=== PATIENT | female | born 1955 | race Caucasian/White ===

== ENCOUNTER 2018-05-19 08:21 | Emergency (ER) | payer MEDICAID, OTHER ==
[2018-05-19 08:28] VITALS: BMI 25.4
[2018-05-19] MEDS ORDERED: Sodium Chloride 0.9% 1,000 ML IV STA (08:45)
--- NOTE | 2018-05-19 08:45 | ED PDOC ---
HPI: Female Pain Time Seen by Provider: 05/19/18 08:32 Chief Complaint (Nursing): Female Genitourinary Chief Complaint (Provider): Hematuria, Abdominal pain History Per: Patient History/Exam Limitations: no limitations Onset/Duration Of Symptoms: Days Current Symptoms Are (Timing): Still Present Associated Symptoms: Urinary Symptoms Additional Complaint(s): 62 y/o female with a PMHx of arthritis and osteoporosis presents to the ED complaining of hematuria and dysuria, onset 2 days ago. Patient also reports lower abdominal pain ongoing for 2 weeks. She denies any associated fever, nausea, vomiting, diarrhea, or other complaints. Denies history of prior UTI or kidney stones. Patient also denies any recent sexual activity. PMD: Dr. Montilla Past Medical History Reviewed: Historical Data, Nursing Documentation, Vital Signs Vital Signs: Last Vital Signs Temp 97 F L 05/19/18 08:26 Pulse 81 05/19/18 08:26 Resp 18 05/19/18 08:26 BP 132/89 05/19/18 08:26 Pulse Ox 98 05/19/18 08:26 - Medical History PMH: Arthritis, Gastritis, Osteoporosis Denies: Hypothyroidism - Family History Family History: States: No Known Family Hx - Home Medications Home Medications: Ambulatory Orders Medication Instructions Recorded Amoxicillin/Clavulanate [Augmentin 1 tab PO BID 10 Days tab 03/28/15 875 MG-125 MG] Ciprofloxacin 0.3% [Ciloxan 0.3% 2 drop OD QID 7 Days bottle 03/28/15 Ophth SOLN] Naproxen [Naprosyn] 500 mg PO BID PRN #20 tablet 05/19/18 Nitrofurantoin Macrocrystals 100 mg PO BID #10 cap 05/19/18 [Macrobid] Phenazopyridine HCl [Pyridium] 100 mg PO TID #9 tab 05/19/18 - Allergies Allergies/Adverse Reactions: Allergies Allergy/AdvReac Type Severity Reaction Status Date / Time No Known Allergies Allergy Verified 05/19/18 08:48 Review of Systems ROS Statement: Except As Marked, All Systems Reviewed And Found Negative Constitutional: Negative for: Fever, Chills Cardiovascular: Negative for: Chest Pain Respiratory: Negative for: Shortness of Breath Gastrointestinal: Positive for: Abdominal Pain. Negative for: Nausea, Vomiting, Diarrhea, Constipation Genitourinary Female: Positive for: Dysuria, Hematuria. Negative for: Incontinence, Vaginal Discharge Neurological: Negative for: Weakness, Headache Physical Exam - Reviewed Nursing Documentation Reviewed: Yes Vital Signs Reviewed: Yes - Physical Exam Appears: Positive for: Non-toxic, No Acute Distress Head Exam: Positive for: ATRAUMATIC, NORMOCEPHALIC Skin: Positive for: Normal Color, Warm, Dry Eye Exam: Positive for: EOMI, Normal appearance, PERRL Neck: Positive for: Painless ROM, Supple Cardiovascular/Chest: Positive for: Regular Rate, Rhythm. Negative for: Murmur Respiratory: Positive for: Normal Breath Sounds. Negative for: Accessory Muscle Use, Respiratory Distress Gastrointestinal/Abdominal: Positive for: Soft, Tenderness (suprapubic). Negative for: Guarding, Rebound Back: Positive for: L CVA Tenderness (mild), R CVA Tenderness (mild) Extremity: Positive for: Normal ROM. Negative for: Pedal Edema, Calf Tenderness Neurologic/Psych: Positive for: Alert, Oriented (x3). Negative for: Motor/Sensory Deficits - Laboratory Results Result Diagrams: 05/19/18 09:22 05/19/18 09:22 - ECG O2 Sat by Pulse Oximetry: 98 (RA) Pulse Ox Interpretation: Normal Medical Decision Making Medical Decision Making: Time: 8:42 Initial Impression: UTI vs. hemorrhagic cystitis Initial Plan: --CMP --CBC --PTT/PT --UA --Urine culture --Blood culture --Urine dip --NS IV fluids --Tylenol 975 mg PO --Pyridium 200 mg PO Scribe Attestation: Documented by Klaudia Arenas, acting as a scribe for Dr. Saranya Wyatt MD. Provider Scribe Attestation: All medical record entries made by the Scribe were at my direction and personally dictated by me. I have reviewed the chart and agree that the record accurately reflects my personal performance of the history, physical exam, medical decision making, and the department course for this patient. I have also personally directed, reviewed, and agree with the discharge instructions and disposition. Disposition - Clinical Impression Clinical Impression: Cystitis - Patient ED Disposition Is Patient to be Admitted: No Doctor Will See Patient In The: Office Counseled Patient/Family Regarding: Diagnosis, Need For Followup, Rx Given - Disposition Disposition: Routine/Home Disposition Time: 10:00 Condition: STABLE Prescriptions: Naproxen [Naprosyn] 500 mg PO BID PRN #20 tablet PRN Reason: Pain, Moderate (4-7) Nitrofurantoin Macrocrystals [Macrobid] 100 mg PO BID #10 cap Phenazopyridine HCl [Pyridium] 100 mg PO TID #9 tab Instructions: Urinary Tract Infection, Adult (DC) Forms: [facility] ([place] Zealander) Print Language: LAO - POA Present On Arrival: None
[2018-05-19 09:35] LABS: BASO % 0.4 % (0.0-2.0); EOS % 0.4 % (0.0-4.0); HEMOGLOBIN 13.2 g/dL (12.0-16.0); LYMPH # 0.9 K/uL (1.0-4.3); LYMPH % 10.1 % (20.0-40.0); MEAN CELL VOLUME 93.4 fl (81.0-99.0); MEAN CORPUSCULAR HEMOGLOBIN 31.6 pg (27.0-31.0); MEAN CORPUSCULAR HGB CONC 33.9 g/dL (33.0-37.0); MONO # 0.4 K/uL (0.0-0.8); MONO % 4.5 % (0.0-10.0); NEUT # 7.4 K/uL (1.8-7.0); NEUT % 84.6 % (50.0-75.0); RBC 4.16 Mil/uL (3.80-5.20); RED CELL DISTRIBUTION WIDTH 13.4 % (11.5-14.5); WHITE BLOOD COUNT 8.8 K/uL (4.8-10.8)
[2018-05-19 09:47] LABS: SQUAMOUS EPITHIAL 8 /hpf (0-5); URINE BILIRUBIN NEGATIVE (NEGATIVE); URINE BLOOD LARGE (NEGATIVE); URINE CLARITY TURBID (Clear); URINE COLOR RED (YELLOW); URINE GLUCOSE (UA) NEG (Normal); URINE PROTEIN 100 mg/dL (NEGATIVE); URINE UROBILINOGEN 0.2-1.0 mg/dL (0.2-1.0)
[2018-05-19 09:50] LABS: INR 1.1; PROTHROMBIN TIME 12.3 Seconds (9.8-13.1)
[2018-05-19 09:52] LABS: ALB/GLOB RATIO 1.4 (1.0-2.1); ALBUMIN 4.6 g/dL (3.5-5.0); ALT/SGPT 24 U/L (9-52); AST/SGOT 26 U/L (14-36); BLOOD UREA NITROGEN 12 mg/dl (7-17); CALCIUM 9.7 mg/dL (8.4-10.2); GFR NON-AFRICAN AMERICAN > 60
[2018-05-19 09:53] LABS: PARTIAL THROMBOPLASTIN TIME 31.1 Seconds (25.6-37.1); URINE LEUKOCYTE ESTERASE LARGE Leu/uL (Negative)
[2018-05-19 10:52] VITALS: BP 123/82; PULSE 58; RESP 16; TEMP 98.2; O2SAT 100
== END 2018-05-19 10:51 | disposition home or self-care (01) ==
LOC: H.ER 08:21
DX: N30.91 Cystitis, unspecified with hematuria (principal)
CPT/HCPCS: 80053; 81003; 85025; 85610; 85730; 87040; 87086; 96360; 99284; J7030

== ENCOUNTER 2018-07-19 14:42 | Emergency (ER) | payer OTHER ==
[2018-07-19 14:42] VITALS: BMI 25.4
[2018-07-19] MEDS ORDERED: Naproxen 500 MG TAB PO ONE (16:30)
--- NOTE | 2018-07-19 17:19 | RAD ---
Date of service: 07/19/2018 PROCEDURE: Right Foot Radiographs. HISTORY: right foot pain after fall COMPARISON: None. FINDINGS: BONES: Bone alignment and mineralization are normal. There is no acute displaced fracture or bone destruction. JOINTS: Mild degenerative osteoarthrosis in the 1st MTP joint. The remaining joint spaces are preserved. SOFT TISSUES: Normal. OTHER FINDINGS: None. IMPRESSION: No acute fracture or dislocation.
--- NOTE | 2018-07-19 17:22 | RAD ---
Date of service: 07/19/2018 PROCEDURE: Radiographs of the right tibia and fibula. HISTORY: right leg pain after fall COMPARISON: None available TECHNIQUE: Frontal and lateral views obtained. FINDINGS: BONES: Bone alignment and mineralization are normal. There is no acute displaced fracture or bone destruction. JOINT SPACES: Unremarkable. OTHER FINDINGS: None. IMPRESSION: No acute fracture or dislocation.
--- NOTE | 2018-07-19 17:27 | CT ---
Date of service: 07/19/2018 PROCEDURE: CT HEAD WITHOUT CONTRAST. HISTORY: dizziness after head trauma COMPARISON: None available. TECHNIQUE: Axial computed tomography images were obtained through the head/brain without intravenous contrast. Radiation dose: Total exam DLP = 1435.16 mGy-cm. This CT exam was performed using one or more of the following dose reduction techniques: Automated exposure control, adjustment of the mA and/or kV according to patient size, and/or use of iterative reconstruction technique. FINDINGS: HEMORRHAGE: No intracranial hemorrhage. BRAIN: Bui-white matter differentiation is preserved. There is no mass, mass effect or abnormal extra-axial fluid collection. There is no territorial infarction. There is mild cerebellar tonsillar ectopia. VENTRICLES: The ventricles are normal in size, shape and configuration. CALVARIUM: There is no calvarial fracture or extracranial soft tissue swelling. PARANASAL SINUSES: Predominantly clear. MASTOID AIR CELLS: Predominantly clear. OTHER FINDINGS: None. IMPRESSION: No acute intracranial abnormality.
--- NOTE | 2018-07-19 17:29 | RAD ---
Date of service: 07/19/2018 PROCEDURE: Right Knee Radiographs. HISTORY: pain to knee after mechanical fall COMPARISON: None. FINDINGS: BONES: Bone alignment and mineralization are normal. There is no acute displaced fracture or bone destruction. There is a dorsal calcaneal enthesophyte. JOINTS: Normal. No osteoarthritis. JOINT EFFUSION: None. OTHER FINDINGS: None. IMPRESSION: No acute fracture or dislocation.
--- NOTE | 2018-07-19 17:38 | CT ---
Date of service: 07/19/2018 PROCEDURE: CT MAXILLOFACIAL BONES WITHOUT CONTRAST HISTORY: pain and bleeding to nose after trauma COMPARISON: None available. TECHNIQUE: Contiguous axial CT images of the maxillofacial bones were obtained. Coronal and sagittal reformats were generated. Radiation dose: Total exam DLP = 0.0 mGy-cm. This CT exam was performed using one or more of the following dose reduction techniques: Automated exposure control, adjustment of the mA and/or kV according to patient size, and/or use of iterative reconstruction technique. FINDINGS: NASAL BONES: There is an acute mildly displaced fracture in the left nasal bone. No acute displaced fracture in the right nasal bone. ORBITS: No acute fracture. The globes are symmetric without evidence for orbital hemorrhage, emphysema or lens dislocation. PARANASAL SINUSES/ MASTOIDS: There is a retention cyst/polyp in the right maxillary sinus. The remaining included paranasal sinuses are predominantly clear. MAXILLA: No acute maxillofacial fracture. MANDIBLE/ TEMPOROMANDIBULAR JOINTS: No acute fracture or dislocation. SKULL BASE: Unremarkable. TEMPORAL BONES: Middle ears and mastoid grossly unremarkable. OTHER FINDINGS: None. IMPRESSION: 1. Acute mildly displaced fracture in the left nasal bone. 2. No acute orbital or maxillofacial fracture
--- NOTE | 2018-07-19 18:03 | ED PDOC ---
HPI: Trauma/Fall - HPI Time Seen by Provider: 07/19/18 15:31 Chief Complaint (Nursing): Trauma Chief Complaint (Provider): Trauma History Per: Patient History/Exam Limitations: no limitations Onset/Duration Of Symptoms: Days (x2 days ago) Additional Complaint(s): Reina Vera is a 63 year old female with a past medical history of hypothyroidism and osteoporosis, who presents to the emergency department complaining of a mechanical fall down x15 steps that she sustained x2 days ago. Patient states she continues to have pain to the nose, dizziness as well as pain to the right knee and right ankle. She states she has no dizziness or chest pain prior to the fall. Patient states she lost her balance while carrying a x4 year old child. She states she has had no prior work up. The dizziness and pain has persisted, prompting her to come to the ED today. PMD: Randall Montilla Past Medical History Reviewed: Historical Data, Nursing Documentation, Vital Signs Vital Signs: Last Vital Signs Temp 97.8 F 07/19/18 15:18 Pulse 57 L 07/19/18 15:18 Resp 17 07/19/18 15:18 BP 128/77 07/19/18 15:18 Pulse Ox 98 07/19/18 15:18 - Medical History PMH: Arthritis, Gastritis, Hypothyroidism, Osteoporosis Denies: Hyperthyroidism, Chronic Kidney Disease - Surgical History Surgical History: No Surg Hx - Family History Family History: States: Unknown Family Hx - Home Medications Home Medications: Ambulatory Orders Medication Instructions Recorded Amoxicillin/Clavulanate [Augmentin 1 tab PO BID 10 Days tab 03/28/15 875 MG-125 MG] Ciprofloxacin 0.3% [Ciloxan 0.3% 2 drop OD QID 7 Days bottle 03/28/15 Ophth SOLN] Nitrofurantoin Macrocrystals 100 mg PO BID #10 cap 05/19/18 [Macrobid] Phenazopyridine HCl [Pyridium] 100 mg PO TID #9 tab 05/19/18 RX: Naproxen [Naprosyn] 500 mg PO BID PRN #20 tablet 05/19/18 - Allergies Allergies/Adverse Reactions: Allergies Allergy/AdvReac Type Severity Reaction Status Date / Time No Known Allergies Allergy Verified 05/19/18 08:48 Review of Systems ROS Statement: Except As Marked, All Systems Reviewed And Found Negative ENT: Positive for: Nose Pain Cardiovascular: Negative for: Chest Pain Musculoskeletal: Positive for: Leg Pain (knee), Foot Pain Neurological: Positive for: Dizziness Physical Exam - Reviewed Nursing Documentation Reviewed: Yes Vital Signs Reviewed: Yes - Physical Exam Appears: Positive for: Non-toxic, No Acute Distress Head Exam: Positive for: ATRAUMATIC, NORMOCEPHALIC Skin: Positive for: Normal Color, Warm, Dry Eye Exam: Positive for: Normal appearance, EOMI, PERRL Neck: Positive for: Normal, Painless ROM, Supple Cardiovascular/Chest: Positive for: Regular Rate, Rhythm. Negative for: Murmur Respiratory: Positive for: Normal Breath Sounds. Negative for: Respiratory Distress Gastrointestinal/Abdominal: Positive for: Normal Exam, Soft. Negative for: Tenderness Back: Positive for: Normal Inspection. Negative for: L CVA Tenderness, R CVA Tenderness, Vertebral Tenderness Extremity: Positive for: Normal ROM (of knee and right ankle), Other (Abrasion to the left knee that is well heeling with no signs of swelling, erytema or drianage; ballottement test is negative; laxity on sapphire to the medial and lateral aspect of knee; ecchyomis to the medial right calf; well healing abrasion over right tibia ). Negative for: Calf Tenderness (or swelling on calf squeeze), Swelling Neurologic/Psych: Positive for: Alert, Oriented (x3), Gait (steady). Negative for: Motor/Sensory Deficits - ECG O2 Sat by Pulse Oximetry: 98 (RA) Pulse Ox Interpretation: Normal Medical Decision Making Medical Decision Making: Time: 1603 A/P: Work up for intracranial injury due to trauma with worsening dizziness as well as bony injury to the right knee and right ankle. --CT head without contrast --Maxillofacial CT without contrast --Right knee x-ray 3 views --Right foot x-ray 3 views --Tibia Fibula Right x-ray --Naproxen 500 mg PO 17:[address] Findings: HEMORRHAGE: No intracranial hemorrhage. BRAIN: Bui-white matter differentiation is preserved. There is no mass, mass effect or abnormal extra-axial fluid collection. There is no territorial infarction. There is mild cerebellar tonsillar ectopia. VENTRICLES: The ventricles are normal in size, shape and configuration. CALVARIUM: There is no calvarial fracture or extracranial soft tissue swelling. PARANASAL SINUSES: Predominantly clear. MASTOID AIR CELLS: Predominantly clear. OTHER FINDINGS: None. IMPRESSION: No acute intracranial abnormality. 17:25 Tibia/fibula x-ray FINDINGS: BONES: Bone alignment and mineralization are normal. There is no acute displaced fracture or bone destruction. JOINT SPACES: Unremarkable. OTHER FINDINGS: None. IMPRESSION: No acute fracture or dislocation. Right foot x-ray FINDINGS: BONES: Bone alignment and mineralization are normal. There is no acute displaced fracture or bone destruction. JOINTS: Mild degenerative osteoarthrosis in the 1st MTP joint. The remaining joint spaces are preserved. SOFT TISSUES: Normal. OTHER FINDINGS: None. IMPRESSION: No acute fracture or dislocation. Right Knee x-ray FINDINGS: BONES: Bone alignment and mineralization are normal. There is no acute displaced fracture or bone destruction. There is a dorsal calcaneal enthesophyte. JOINTS: Normal. No osteoarthritis. JOINT EFFUSION: None. OTHER FINDINGS: None. IMPRESSION: No acute fracture or dislocation. 17:[address] FINDINGS: NASAL BONES: There is an acute mildly displaced fracture in the left nasal bone. No acute displaced fracture in the right nasal bone. ORBITS: No acute fracture. The globes are symmetric without evidence for orbital hemorrhage, emphysema or lens dislocation. PARANASAL SINUSES/ MASTOIDS: There is a retention cyst/polyp in the right maxillary sinus. The remaining included paranasal sinuses are predominantly clear. MAXILLA: No acute maxillofacial fracture. MANDIBLE/ TEMPOROMANDIBULAR JOINTS: No acute fracture or dislocation. SKULL BASE: Unremarkable. TEMPORAL BONES: Middle ears and mastoid grossly unremarkable. OTHER FINDINGS: None. IMPRESSION: 1. Acute mildly displaced fracture in the left nasal bone. 2. No acute orbital or maxillofacial fracture 1845: Pt with unremarkable xrays. Pt ambulatory without deficit and right knee placed in geraldine wrap. Pt to follow up with orthopedics. CT facial shows mildly displaced nasal bone fracture. Pt advised to follow up with ENT. Encouraged to take Motrin or Tylenol for pain. Follow up with primary medical doctor as needed. Return parameters discussed. Scribe Attestation: Documented by Dale Bocanegra, acting as a scribe for Katie Clifton MD. Provider Scribe Attestation: All medical record entries made by the Scribe were at my direction and personally dictated by me. I have reviewed the chart and agree that the record accurately reflects my personal performance of the history, physical exam, medical decision making, and the department course for this patient. I have also personally directed, reviewed, and agree with the discharge instructions and disposition. Disposition - Clinical Impression Clinical Impression: Nasal bone fracture, Right knee pain - Disposition Referrals: Oracio Dominguez MD [Staff Provider] - Delgado Viramontes MD [Medical Doctor] - Disposition: Routine/Home Disposition Time: 18:50 Condition: IMPROVED Additional Instructions: Take Motrin or Tylenol for pain. Follow up with orthopedic doctor for knee and ankle pain. Follow up with ENT (otolaryngology) for small broken bone in the nose. Follow up with primary medical doctor as previously scheduled. Instructions: Chronic Knee Pain (DC), Skull and Facial Fractures (DC) Forms: [facility] (Malay), [facility] ED School/Work Excuse Print Language: [place]
[2018-07-19 19:08] VITALS: BP 136/81; PULSE 66; RESP 18; TEMP 98.4
[2018-07-19] MEDS ORDERED: Naproxen 500 MG TAB PO SCH (21:00)
[2018-07-21 11:55] VITALS: O2SAT 98
== END 2018-07-19 19:08 | disposition home or self-care (01) ==
LOC: H.ER 14:42
DX: S02.2XXA Fracture of nasal bones, initial encounter for closed fracture (principal); W10.9XXA Fall (on) (from) unspecified stairs and steps, initial encounter; Y92.89 Other specified places as the place of occurrence of the external cause; E03.9 Hypothyroidism, unspecified; M81.0 Age-related osteoporosis without current pathological fracture